=== PATIENT | male | born 1980 | race Caucasian/White ===

== ENCOUNTER 2021-08-18 15:33 | Emergency (ER) | payer MEDICAID, SELFPAY ==
[2021-08-18 17:02] VITALS: BP 107/76; PULSE 88; RESP 18; TEMP 36.4; O2SAT 98; BMI 25.1
[2021-08-18 18:12] LABS: Basophils # 0.1 10^3/uL (0.0-0.1); Basophils % 0.3 %; Eosinophils # 0.1 10^3/uL (0.0-0.8); Hematocrit 48.4 % (42.0-52.0); Lymphocytes # 2.6 10^3/uL (0.8-4.8); Lymphocytes % 17.6 %; Mean Corpuscular HGB Conc 35.1 g/dL (30.0-36.0); Mean Corpuscular Hemoglobin 31.8 pg (28.0-34.0); Mean Corpuscular Volume 90.5 fl (80-94); Mean Platelet Volume 10.7 fL (7.4-10.4); Monocytes # 1.1 10^3/uL (0.2-0.9); Monocytes % 7.8 %; Neutrophils # 10.51 10^3/uL (1.8-7.7); Neutrophils % 72.7 %; Nucleated Red Blood Cells % 0 %; Platelet Count 229 10^3/cmm (130-400); Red Blood Count 5.35 10^6/uL (4.1-5.3); Red Cell Distribution Width 11.8 % (12.1-15.1); White Blood Count 14.5 10^3/uL (4.0-10.0)
[2021-08-18 18:23] LABS: Alanine Aminotransferase 304 U/L (0-41); Albumin Level 4.3 g/dL (3.5-5.2); Alkaline Phosphatase 191 IU/L (40-130); Anion Gap 17.1 (5-19); Aspartate Amino Transferase 158 U/L (0-40); Blood Urea Nitrogen 6 mg/dL (6-20); Calcium 9.3 mg/dL (8.5-10.5); Carbon Dioxide 26 mmol/L (22-29); Chloride 90 mmol/L (98-107); Globulin 4.4 g/dL (1.3-4.6); Glomerular Filtration Rate 126.2 mL/min (90-130); Glucose 465 mg/dL (65-115); Osmolality Calculated 286 mOsm/kg (285-295); Potassium 4.1 mmol/L (3.5-5.1); Sodium 129 mmol/L (136-145); Total Bilirubin 0.9 mg/dL (0.15-1.2); Total Protein 8.7 g/dL (6.6-8.7)
[2021-08-18 18:53] LABS: Urine Appearance SL Hazy (CLEAR); Urine Color Yellow (Yellow)
[2021-08-18 18:54] LABS: Add Urine Microscopic? YES; Bilirubin Urine Neg (Negative); Blood Urine Neg (Negative); Glucose Urine UA 4+ (Normal); Ketones Urine Negative (Negative); Leukocyte Esterase Urine Trace (Negative); Nitrate Urine Negative (Negative); Protein Urine Trace (Negative); Specific Gravity, Urine 1.005 (1.005-1.030); Urobilinogen Urine Norm (Negative); pH Urine 5 (5-7)
[2021-08-18 19:01] LABS: Add Urine Culture? Yes; WBC Urine 25-40 /hpf (0-5)
== END 2021-08-18 20:41 ==
PROVIDERS: Nurse Practitioner Family; Emergency Provider Family Medicine
DX: Z53.21 Procedure and treatment not carried out due to patient leaving prior to being seen by health care provider (principal)
CPT/HCPCS: 80053; 81001; 85025; 87086

== ENCOUNTER 2023-10-11 17:23 | Emergency (ER) | payer MEDICAID, SELFPAY ==
[2023-10-11 17:24] VITALS: BP 102/77; PULSE 79; RESP 18; TEMP 36.8; O2SAT 96; BMI 19.3
--- NOTE | 2023-10-11 17:36 | ED.C_ITS ---
HPI - Psych 2 General: Chief Complaint: Psychiatric Symptoms Stated Complaint: 96 hr hold Time Seen by Provider: 10/11/23 17:25 Source: patient and police Mode of arrival: ambulatory Limitations: no limitations History of Present Illness: 43-year-old male states that he was arre sted this morning during the booking process he told the please officers that he was depressed and suicidal. He states that he was just upset that he was getting arrested patient is bonded out and brought here for psych eval. He states now on not suicidal denies any worsening proving factors. Associated symptoms: Reports depression Review of Systems 2 Const: Denies: fever(s), chills, body aches or change in appetite Eyes: Denies: eye discomfort ENMT: Denies: throat pain or dental pain Card: Denies: chest pain Resp: Denies: dyspnea GI: Denies: abdominal pain, nausea, vomiting or diarrhea : Denies: dysuria Musc: Denies: neck pain or back pain Skin/Breast: Denies: rash Neuro: Denies: headache(s) Psych: Reports: depression Physical Exam 2 Const: COMMON NORMALS: no acute distress, patient oriented x3 and healthy appearing HENMT: COMMON NORMALS: normocephalic and atraumatic HEAD & SCALP: n ormocephalic and atraumatic Eye: COMMON NORMALS: Equal, round and reactive pupils present and EOMs intact bilaterally PUPIL: Yes Equal, round and reactive pupils present Neck/C-Spine: COMMON NORMALS: full ROM and supple Chest: COMMONS NORMALS: normal inspection of the chest Resp: COMMON NORMALS: normal respiratory effort Cardio: COMMON NORMALS: regular rate, regular rhythm and No murmurs present (Cardio) RATE: regular rate RHYTHM: regular rhythm GI: COMMON NORMALS: no masses Extremity: COMMON NORMALS: normal to inspection and full ROM Neuro: COMMON NORMALS: patient oriented x3, moves all extremities and no focal motor deficits Psych: COMMON NORMALS: mental status grossly normal, Normal thought process present and cooperative THOUGHT PROCESS: Normal thought process present Skin: COMMON NORMALS: no rashes or lesions noted and no wounds GENERAL SKIN EXAM: no rashes or lesions noted Course 2 Vital Signs: Vital signs: Vital Signs Temperature 98.3 F 10/11/23 17:24 Pulse Rate 79 10/11/23 17:55 Respiratory Rate 18 10/11/23 17:55 Blood Pressure 102/77 10/11/23 17:55 Pulse Oximetry 96 10/11/23 17:55 Oxygen Delivery Me thod Room Air 10/11/23 17:55 MDM - Psych Medical Decision Making Patient presents for suicidal ideation while he is being arrested he is no longer suicidal patient is well-appearing here he is not SI or HI had him evaluated by our psychiatrist who agrees he is not an imminent threat to himself or others I feel he is stable for discharge he is to follow-up his PCP and return if worsening. Medical Records I reviewed the patient's medical records. Lab Data I reviewed the patient's lab results. 10/11/23 18:11 10/11/23 18:11 Laboratory Results WBC 10.08 10^3/uL (3.29-11.43) 10/11/23 18:11 RBC 5.39 10^6/uL (3.85-5.65) 10/11/23 18:11 Hgb 16.60 g/dL (11.27-16.99) 10/11/23 18:11 Hct 49.0 % (37-53) 10/11/23 18:11 MCV 90.9 fl (82-101) 10/11/23 18:11 MCH 30.8 pg (27-33) 10/11/23 18:11 MCHC 33.9 g/dL (30-55) 10/11/23 18:11 RDW 12.2 % (12.1-15.1) 10/11/23 18:11 Plt Count 218 10^3/cmm (157-399) 10/11/23 18:11 MPV 10.3 fL (7.4-10.4) 10/11/23 18:11 Neut % (Auto) 64.4 % 10/11/23 18:11 Lymph % (Auto) 25.8 % 10/11/23 18:11 [place]ding % (Auto) 8.1 % 10/11/23 18:11 Eos % (Auto) 1.1 % 10/11/23 18:11 Baso % (Auto) 0.3 % 10/11/23 18:11 Neut # (Auto) 6.49 10^3/uL (1.8-7.7) 10/11/23 18:11 Lymph # (Auto) 2.6 10^3/uL (0.8-4.8) 10/11/23 18:11 [place]ding # (Auto) 0.8 10^3/uL (0.2-0.9) 10/11/23 18:11 Eos # (Auto) 0.1 10^3/uL (0.0-0.8) 10/11/23 18:11 Baso # (Auto) 0.0 10^3/uL (0.0-0.1) 10/11/23 18:11 Nucleated RBC % (auto) 0 % 10/11/23 18:11 Nucleated RBCs # 0.0 /100WBC 10/11/23 18:11 No radiology studies performed this visit Discharge Plan Discharge Patient Disposition: Home Clinical Impression: Suicidal ideation Condition: Stable Discharge Orders: Discharge ED (Routine); Ordered 10/11/23 Ordered By: Sandip Ness Discharge Diet: Advance as tolerated Discharge Activity: Resume usual activity Patient Instructions: Suicide Prevention (ED), Suicidal Ideation Coding Level of Care Code ED Low Voltage [employer] for [employer] Powell
[2023-10-11 17:55] VITALS: BP 102/77; PULSE 79; RESP 18; O2SAT 96
[2023-10-11 18:42] LABS: Basophils % 0.3 %; Eosinophils # 0.1 10^3/uL (0.0-0.8); Eosinophils % 1.1 %; Lymphocytes # 2.6 10^3/uL (0.8-4.8); Lymphocytes % 25.8 %; Mean Corpuscular HGB Conc 33.9 g/dL (30-55); Mean Corpuscular Hemoglobin 30.8 pg (27-33); Mean Corpuscular Volume 90.9 fl (82-101); Mean Platelet Volume 10.3 fL (7.4-10.4); Monocytes # 0.8 10^3/uL (0.2-0.9); Monocytes % 8.1 %; Neutrophils # 6.49 10^3/uL (1.8-7.7); Neutrophils % 64.4 %; Nucleated Red Blood Cells % 0 %; Platelet Count 218 10^3/cmm (157-399); Red Blood Count 5.39 10^6/uL (3.85-5.65); Red Cell Distribution Width 12.2 % (12.1-15.1); White Blood Count 10.08 10^3/uL (3.29-11.43)
[2023-10-11 19:04] LABS: Alanine Aminotransferase 33 U/L (0-41); Albumin Level 3.7 g/dL (3.5-5.2); Alkaline Phosphatase 92 U/L (40-130); Anion Gap 13.5 (5-19); Aspartate Amino Transferase 20 U/L (0-40); Blood Urea Nitrogen 20 mg/dL (6-20); Carbon Dioxide 28 mmol/L (22-29); Chloride 99 mmol/L (98-107); Globulin 3.5 g/dL (1.3-4.6); Glomerular Filtration Rate 106.5 mL/min (90-130); Glucose 351 mg/dL (65-115); Osmolality Calculated 299 mOsm/kg (285-295); Potassium 4.5 mmol/L (3.5-5.1); Sodium 136 mmol/L (136-145); Total Bilirubin 0.5 mg/dL (0.15-1.2); Total Protein 7.2 g/dL (6.6-8.7)
[2023-10-11 19:10] LABS: Acetaminophen < 5.0 ug/mL (10-30); Salicylate < 0.3 mg/dL (3-10)
[2023-10-11 19:19] VITALS: BP 120/81; PULSE 95; RESP 17; O2SAT 98
== END 2023-10-11 19:21 | disposition home or self-care (01) ==
PROVIDERS: Family Medicine; Emergency Provider Emergency Medicine
DX: R45.851 Suicidal ideations (principal)
CPT/HCPCS: 36415; 80053; 80307; 85025; 99283

== ENCOUNTER → 2025-08-18 15:44 | Outpatient (BNVA) | payer MEDICAID, SELFPAY | DX: E11.9 Type 2 diabetes mellitus without complications (principal) | CPT/HCPCS: 80053; 80061; 83036; 85025 ==